=== PATIENT | female | born 1950 | race Caucasian/White ===

== ENCOUNTER 2016-11-20 20:08 | Observation (INO) | payer MEDICARE, OTHER ==
[~2016-11-20] VITALS: Ht 149.9 cm; Wt 80.0 kg
[2016-11-20 20:12] VITALS: BP 131/69; PULSE 80; RESP 26; TEMP 97.3; O2SAT 98
[2016-11-20 20:20] VITALS: BP 154/78; PULSE 80; RESP 24; O2SAT 97
[2016-11-20 20:30] VITALS: BP 154/78; PULSE 75; O2SAT 97
[2016-11-20] MEDS ORDERED: HYDROmorphone HCL PF 1 MG/ML VIAL IV PUSH ONE ×2 (20:45→21:45)
[2016-11-20] MEDS ORDERED: SODIUM CHLORIDE 0.9% FLUSH 5 ML FLUSH IVF PRN (20:45)
[2016-11-20 20:50] LABS: AUTOMATED NEUTROPHIL # 5.7 TH/MM3 (1.8-7.7); BASOPHIL % 0.3 % (0.0-2.0); EOSINOPHIL # 0.4 TH/MM3 (0-0.4); HEMATOCRIT 41.8 % (35.0-46.0); HEMO FLAGS DIFF FINAL; LYMPH % 24.2 % (9.0-44.0); LYMPHOCYTE # 2.1 TH/MM3 (1.0-4.8); MEAN CORPUSCULAR HEMOGLOBIN 28.9 PG (27.0-34.0); MEAN CORPUSCULAR HGB CONC 32.4 % (32.0-36.0); MONO % 6.9 % (0.0-8.0); NEUT % 64.6 % (16.0-70.0); PLATELET COUNT 260 TH/MM3 (150-450); RED CELL DISTRIBUTION WIDTH 13.2 % (11.6-17.2); WHITE BLOOD COUNT 8.8 TH/MM3 (4.0-11.0)
[2016-11-20 21:04] VITALS: BP 143/67; PULSE 79; RESP 20; O2SAT 98
[2016-11-20 21:04] LABS: CHLORIDE 111 MEQ/L (98-107); POTASSIUM 4.3 MEQ/L (3.5-5.1); SODIUM (NA) 144 MEQ/L (136-145)
[2016-11-20 21:08] LABS: ANION GAP 8 MEQ/L (5-15); BLOOD UREA NITROGEN 20 MG/DL (7-18); MAGNESIUM 2.3 MG/DL (1.5-2.5)
[2016-11-20 21:11] LABS: ALT (GPT) 42 U/L (10-53); AST (GOT) 25 U/L (15-37); GLOMERULAR FILTRATION RATE 45 ML/MIN (>89)
[2016-11-20 21:12] LABS: TOTAL BILIRUBIN ADULT 0.3 MG/DL (0.2-1.0)
[2016-11-20 21:14] LABS: ALKALINE PHOSPHATASE 110 U/L (45-117)
--- NOTE | 2016-11-20 21:14 | RADHPO ---
EXAM DATE/TIME: 11/20/2016 20:59 [facility] COMPARISON: No previous studies available for comparison. INDICATIONS : Chest pain. MEDICAL HISTORY : None. SURGICAL HISTORY : None. ENCOUNTER: Initial ACUITY: 2 days PAIN SCORE: 7/10 LOCATION: middle chest FINDINGS: A single view of the chest demonstrates the lungs to be symmetrically aerated without evidence of mas s, infiltrate or effusion. The cardiomediastinal contours are unremarkable. Osseous structures are intact. CONCLUSION: No evidence of acute cardiopulmonary disease. Rhys Cardona MD on November 20, 2016 at 21:12 Board Certified Radiologist. This report was verified electronically.
[2016-11-20 21:17] LABS: CREATINE KINASE 69 U/L (26-192)
[2016-11-20] MEDS ORDERED: CITRTAB7 PO (21:24)
[2016-11-20] MEDS ORDERED: CARD180C5 PO (21:24)
[2016-11-20] MEDS ORDERED: AMBI5TAB PO (21:24)
[2016-11-20] MEDS ORDERED: FLUT50SP EACH NARE (21:24)
[2016-11-20] MEDS ORDERED: MONT10TA2 PO (21:24)
[2016-11-20] MEDS ORDERED: ALBUAER3 INH (21:24)
[2016-11-20] MEDS ORDERED: CREON12 PO (21:24)
[2016-11-20] MEDS ORDERED: ADVA500A INH (21:24)
[2016-11-20] MEDS ORDERED: VITATAB11 PO (21:24)
[2016-11-20] MEDS ORDERED: ROPI1TAB PO (21:24)
[2016-11-20] MEDS ORDERED: CHOL1CAP6 (21:24)
[2016-11-20] MEDS ORDERED: FERR325T PO (21:24)
[2016-11-20] MEDS ORDERED: CELE40TA PO (21:24)
[2016-11-20] MEDS ORDERED: ALBU2TAB4 PO (21:24)
[2016-11-20] MEDS ORDERED: LEVO25TA4 PO (21:24)
[2016-11-20] MEDS ORDERED: OMEP20TA PO (21:24)
--- NOTE | 2016-11-20 21:31 | PD ---
HPI Chief Complaint: Respiratory Symptoms Time Seen by Provider: 20:26 Travel History International Travel<30 days: No Contact w/Intl Traveler<30days: No History of Present Illness HPI The patient is 58 years old. She reports coughing for about 2 days. She developed pain in the region of the right lower chest posteriorly. There is a pleuritic component. She's had no fever. She states she's never had this kind of pain. There is no radiation. No recent traumatic injury is reported. She recalls that years prior she was admitted to a hospital for CHF however states she is not familiar with the diagnosis when asked about it. PFSH Past Medical History Asthma: Yes Anxiety: Yes Depression: Yes Congestive Heart Failure: Yes COPD: Yes Hypertension: Yes Thyroid Disease: Yes Influenza Vaccination: Yes ?: Not Past Surgical History Appendectomy: Yes Cholecystectomy: Yes Endocrine Surgery: Yes (pancreas) Tonsillectomy: Yes Other Surgery: Yes (knee replacement, rt shoulder, gallblader) Social History Alcohol Use: No Tobacco Use: No Substance Use: No Allergies-Medications (Allergen,Severity, Reaction): Coded Allergies: No Known Allergies (Unverified , 11/20/16) Reported Meds & Prescriptions Reported Meds & Active Scripts Active Reported Creon (Amylase/Lipase/Protease) 12,000-38,000-60,000 Units Cap 1 Cap PO TIDPC Singulair (Montelukast Sodium) 10 Mg Tab 10 Mg PO HS Vitamin D-3 (Cholecalciferol) 1,000 Unit Cap Vitamin B Complex (B-Complex Vitamins) 1 Tab 1 Cap PO DAILY Ropinirole 1 Mg Tab 1 Mg PO DAILY Celexa (Citalopram Hydrobromide) 40 Mg Tab 40 Mg PO DAILY Fluticasone Nasal [place] 50 Mcg/Act Naspr 50 Mcg EACH NARE BID 50 mcg/spray Albuterol (Albuterol Sulfate) 2 Mg Tab 2 Mg PO TID Ambien (Zolpidem Tartrate) 5 Mg Tab 5 Mg PO HS PRN Proair Hfa 8.5 GM Inh (Albuterol Sulfate) 90 Mcg/Act Aer 2 Puff INH Q4-6H PRN 108 mcg/actuation Citracal + D3 Maximum (Calcium Citrate-Vitamin D) 315-250 Mg-Unit Tab 1 Tab PO BID Levothyroxine (Levothyroxine Sodium) 25 Mcg Tab 25 Mcg PO DAILY Omeprazole 20 Mg Tab 20 Mg PO DAILY Cardizem CD 24 HR (Diltiazem CD 24 HR) 180 Mg Caper 180 Mg PO DAILY Ferrous Sulfate 325 Mg Tab 325 Mg PO DAILY Advair Diskus Inh (Fluticasone-Salmeterol Inh) 500-50 Mcg/Blist Aer 1 Puff INH BID Rinse mouth after use. Review of Systems Except as stated in HPI: all other systems reviewed are Neg General / Constitutional: No: Fever, Chills Cardiovascular: Positive: Chest Pain or Discomfort Respiratory: No: Cough Physical Exam Narrative GENERAL: 66-year-old female mild to moderate distress secondary to pain and/or anxiety SKIN: Warm and dry. HEAD: Atraumatic. Normocephalic. EYES: Pupils equal and round. No scleral icterus. No injection or drainage. ENT: No nasal bleeding or discharge. Mucous membranes pink and moist. NECK: Trachea midline. No JVD. CARDIOVASCULAR: Regular rate and rhythm. No murmur appreciated. RESPIRATORY: No accessory muscle use. Clear to auscultation. Breath sounds equal bilaterally. GASTROINTESTINAL: Abdomen soft, non-tender, nondistended. Hepatic and splenic margins not palpable. MUSCULOSKELETAL: No obvious deformities. No clubbing. No cyanosis. No evidence DVT. NEUROLOGICAL: Awake and alert. No obvious cranial nerve deficits. Motor grossly within normal limits. Normal speech. PSYCHIATRIC: Appropriate mood and affect; insight and judgment normal. Data Data Last Documented VS Vital Signs Date Time Temp Pulse Resp B/P Pulse Ox O2 Delivery O2 Flow Rate FiO2 11/20/16 22:27 81 140/74 96 Room Air 11/20/16 21:34 16 2 11/20/16 20:12 97.3 Vital signs reviewed Orders Electrocardiogram (11/20/16 20:36) Ckmb (Isoenzyme) Profile (11/20/16 20:36) Complete Blood Count With Diff (11/20/16 20:36) Comprehensive Metabolic Panel (11/20/16 20:36) Magnesium (Mg) (11/20/16 20:36) Troponin I (11/20/16 20:36) Lipase (11/20/16 20:36) Chest, Single Ap (11/20/16 20:36) Ecg Monitoring (11/20/16 20:36) Bilateral Bp Monitoring (11/20/16 20:36) Iv Access Insert/Monitor (11/20/16 20:36) Oximetry (11/20/16 20:36) Oxygen Administration (11/20/16 20:36) Sodium Chloride 0.9% Flush (Ns Flush) (11/20/16 20:45) Ct Pulmonary Angiogram (11/20/16 20:36) Hydromorphone Pf Inj (Dilaudid Pf Inj) (11/20/16 20:45) B-Type Natriuretic Peptide (11/20/16 20:36) Hydromorphone Pf Inj (Dilaudid Pf Inj) (11/20/16 21:45) Iohexol 350 Inj (Omnipaque 350 Inj) (11/20/16 21:47) Ceftriaxone Inj (Rocephin Inj) (11/20/16 22:15) Azithromycin Inj (Zithromax Inj) (11/20/16 22:15) Blood Culture (11/20/16 22:14) Admit Order (Ed Use Only) (11/20/16 23:06) Place In Observation (11/20/16 ) Vital Signs (Adult) Q4H (11/20/16 23:06) Activity Oob With Assistance (11/20/16 23:06) Lunchroom Aide / Telemetry .CONTINUOUS (11/20/16 23:06) Diet Heart Healthy (11/21/16 Breakfast) Sodium Chloride 0.9% Flush (Ns Flush) (11/20/16 23:15) Sodium Chloride 0.9% Flush (Ns Flush) (11/21/16 09:00) Creatine Kinase (Cpk) (11/21/16 04:00) Creatine Kinase (Cpk) (11/21/16 10:00) Troponin I (11/21/16 04:00) Troponin I (11/21/16 10:00) Electrocardiogram (11/21/16 04:00) Electrocardiogram (11/21/16 10:00) Case Management Consult (11/20/16 23:06) Enoxaparin Inj (Lovenox Inj) (11/21/16 09:00) Naloxone Inj (Narcan Inj) (11/20/16 23:15) Labs Laboratory Tests Test 11/20/16 20:20 White Blood Count 8.8 TH/MM3 Red Blood Count 4.70 MIL/MM3 Hemoglobin 13.6 GM/DL Hematocrit 41.8 % Mean Corpuscular Volume 89.0 FL Mean Corpuscular Hemoglobin 28.9 PG Mean Corpuscular Hemoglobin 32.4 % Concent Red Cell Distribution Width 13.2 % Platelet Count 260 TH/MM3 Mean Platelet Volume 7.9 FL Neutrophils (%) (Auto) 64.6 % Lymphocytes (%) (Auto) 24.2 % Monocytes (%) (Auto) 6.9 % Eosinophils (%) (Auto) 4.0 % Basophils (%) (Auto) 0.3 % Neutrophils # (Auto) 5.7 TH/MM3 Lymphocytes # (Auto) 2.1 TH/MM3 Monocytes # (Auto) 0.6 TH/MM3 Eosinophils # (Auto) 0.4 TH/MM3 Basophils # (Auto) 0.0 TH/MM3 CBC Comment DIFF FINAL Differential Comment Sodium Level 144 MEQ/L Potassium Level 4.3 MEQ/L Chloride Level 111 MEQ/L Carbon Dioxide Level 25.0 MEQ/L Anion Gap 8 MEQ/L Blood Urea Nitrogen 20 MG/DL Creatinine 1.20 MG/DL Estimat Glomerular Filtration 45 ML/MIN Rate Random Glucose 135 MG/DL Calcium Level 8.1 MG/DL Magnesium Level 2.3 MG/DL Total Bilirubin 0.3 MG/DL Aspartate Amino Transf 25 U/L (AST/SGOT) Alanine Aminotransferase 42 U/L (ALT/SGPT) Alkaline Phosphatase 110 U/L Total Creatine Kinase 69 U/L Troponin I LESS THAN 0.02 NG/ML B-Type Natriuretic Peptide 31 PG/ML Total Protein 7.1 GM/DL Albumin 3.8 GM/DL Lipase 227 U/L [facility] Medical Decision Making Medical Screen Exam Complete: Yes Emergency Medical Condition: Yes Differential Diagnosis NSTEMI, unstable angina, coronary vasospasm, PE, PTX, aortic dissection, pericarditis, myocarditis, endocarditis, PNA, esophageal disease, aneurysm, musculoskeletal etiologies, anxiety, cocaine/sympathomimetic abuse Narrative Course EKG shows a sinus rhythm with a rate of 77 normal axis intervals; no ischemic injury pattern present Last 24 hours Impressions Chest X-Ray 11/20/162035 Signed Impressions: Service Date/Time: November 20:59 - CONCLUSION: No evidence of acute cardiopulmonary disease. Rhys Cardona MD CBC & BMP Diagram 11/20/16 20:20 LFTs normal Lipase normal BNP 31 Tn < 0.02 Last 24 hours Impressions Chest X-Ray 11/20/162035 Signed Impressions: Service Date/Time: November 20:59 - CONCLUSION: No evidence of acute cardiopulmonary disease. Rhys Cardona MD CT Angiography 11/20/162035 Signed Impressions: Service Date/Time: November 21:41 - CONCLUSION: 1. No pulmonary embolus. 2. Focal coronary artery calcification left anterior descending. 3. Patchy infiltrates of both lungs that are most likely infectious or inflammatory. Localized area of slight subcentimeter nodularity right upper lobe. Followup noncontrast chest CT recommended in no more than 6 months. The 1 cm rim calcified splenic artery aneurysm should be rechecked at that same time. Rhys Cardona MD Etiology of pain is unclear. On exam the skin appears normal and there is no significant TTP in R posterior chest wall. CT shows possible bilateral pneumonia v inflammatory change. She does report a cough for past two days. Rocephin and azithromycin started. Blood cultures drawn. Calcification of LAD on CT of concern. Pt required hydromorphone 0.5mg IV x 2 during ER stay. d/w Dr Freitas. Diagnosis Primary Impression: PNA (pneumonia) Qualified Code: J18.9 - Pneumonia of both lungs due to infectious organism, unspecified part of lung Additional Impression: Chest pain Qualified Code: R07.9 - Chest pain, unspecified type Admitting Information Admitting Physician Requests: Admit Juanjose Brown MD Nov 20, 2016 21:31
[2016-11-20 21:34] VITALS: BP_SYST 114; BP_SYST 121; BP_DIAS 65; BP_DIAS 69; PULSE 78; RESP 16; O2SAT 98
[2016-11-20] MEDS ORDERED: IOHEXOL 350 MG/ML 10 ML VIAL (for RAD DIAG) IV ONE (21:47)
--- NOTE | 2016-11-20 22:03 | RADHPO ---
EXAM DATE/TIME: 11/20/2016 21:41 [facility] COMPARISON: CHEST SINGLE AP, November 20, 2016, 20:59. INDICATIONS : Shortness of breath. Evaluate for embolism. IV CONTRAST: 75 cc Omnipaque 350 (iohexol) IV RADIATION DOSE: 14.05 CTDIvol (mGy) MEDICAL HISTORY : Congestive hearrt failure. Hypertension. Chronic obstructive pulmonary disease. SURGICAL HISTORY : Cholecystectomy. Appendectomy.Pancreas. Right shoulder. ENCOUNTER: Initial ACUITY: 1 day PAIN SCALE: 9/10 LOCATION: Right chest TECHNIQUE: Volumetric scanning of the chest was performed using a pulmonary embolism protocol MIP images were re constructed. Using automated exposure control and adjustment of the mA and/or kV according to patien t size, radiation dose was kept as low as reasonably achievable to obtain optimal diagnostic quality images. FINDINGS: There is no pulmonary embolus. Normal heart size. There is coronary artery calcification, most conspicuous proximally and the left a nterior descending. Mild, patchy air space consolidation and groundglass infiltrates seen diffusely of both lungs that ar e presumably infectious or inflammatory. There is an approximately 5 mm slightly nodular area of the right upper lobe. No dense infiltrate. No pleural effusion or pneumothorax. No mediastinal, hilar or axillary lymphadenopathy demonstrated. There appears to been a previous joann jurgen bypass. 10 mm rim calcified splenic artery aneurysm incidentally noted. CONCLUSION: 1. No pulmonary embolus. 2. Focal coronary artery calcification left anterior descending. 3. Patchy infiltrates of both lungs that are most likely infectious or inflammatory. Localized area o f slight subcentimeter nodularity right upper lobe. Followup noncontrast chest CT recommended in no m ore than 6 months. The 1 cm rim calcified splenic artery aneurysm should be rechecked at that same ti la. Rhys Cardona MD on November 20, 2016 at 21:58 Board Certified Radiologist. This report was verified electronically.
[2016-11-20] MEDS ORDERED: cefTRIAXone INJ 1,000 MG in SODIUM CHLORIDE 0.9% INJ 100 ML IV ONE (22:15)
[2016-11-20] MEDS ORDERED: AZITHROMYCIN INJ 500 MG in SODIUM CHLOR 0.9% 250 ML INJ 250 ML IV ONE (22:15)
[2016-11-20 22:27] VITALS: BP 140/74; PULSE 81; O2SAT 96
[2016-11-20] MEDS ORDERED: NALOXONE HCL 0.4 MG/ML AMP IV PRN (23:15)
[2016-11-20] MEDS ORDERED: SODIUM CHLORIDE 0.9% FLUSH 5 ML FLUSH FLUSH PRN (23:15)
[2016-11-21] VITALS (11 sets, daily range): BP systolic 117–169; BP diastolic 67–95; PULSE 71–81; RESP 18–21; TEMP 96.7–98.6; O2SAT 96–99
[2016-11-21] MEDS: HYDROmorphone HCL PF 1 MG/ML VIAL IV PUSH PRN ×4 (01:19→22:33)
[2016-11-21 04:43] LABS: CREATINE KINASE 58 U/L (26-192)
[2016-11-21] MEDS ORDERED: LEVOFLOXACIN 750 MG PREMIX INJ 150 ML IV SCH ×2 (09:00)
[2016-11-21] MEDS: ENOXAPARIN SODIUM 40 MG/0.4 ML SYRINGE SQ SCH (09:47)
[2016-11-21] MEDS: SODIUM CHLORIDE 0.9% FLUSH 5 ML FLUSH FLUSH SCH ×2 (09:47→21:34)
[2016-11-21 10:39] LABS: CREATINE KINASE 53 U/L (26-192)
--- NOTE | 2016-11-21 15:42 | EKG ---
Date Performed: 11/21/2016 Time Performed: 03:35:38 PTAGE: 66 years EKG: Sinus rhythm . rSr'(V1) - probable normal variant Septal T wave changes are nonspecific Borderline ECG PREVIOUS TRACING : 11/20/2016 21.18 Compared to prior tracing no significant change DOCTOR: Karen Albarado Interpretating Date/Time 11/21/2016 15:40:52
--- NOTE | 2016-11-21 15:42 | EKG ---
Date Performed: 11/20/2016 Time Performed: 21:18:54 PTAGE: 66 years EKG: Sinus rhythm . rSr'(V1) - probable normal variant Septal and lateral ST-T changes are nonspecific Borderline ECG NO PREVIOUS TRACING DOCTOR: Karen Albarado Interpretating Date/Time 11/21/2016 15:40:20
[2016-11-21] MEDS ORDERED: RESP: ALBUTEROL 2.5 MG/IPRATROPIUM 0.5 MG NEB (PRN) NEB (16:00)
--- NOTE | 2016-11-21 16:10 | HHI.HP ---
[facility]Staff Ad[facility] Diagnosis Bilat PNA, CP Diagnoses: Chief Complaint: Right back pain worsened with respiration Travel History International Travel<30 Days: No Contact w/Intl Traveler <30 Da: No History of Present Illness 66 years old female presented to the ED complaining of severe stabbing sharp right sided back pain worsened with breathing, started about 2-3 days ago, patient stated she had flulike syndrome 2 weeks ago. No fever or chills no anterior chest pain, no nausea or vomiting or diarrhea or constipation, no abdominal pain, no dizziness or lightheaded. In ED CT scan has been done to rule out EE which was negative, however it shows bilateral infiltrate representing inflammation or infection, right upper lung nodularity subcentimeter need to be followed up in 6 month. Patient started on O2 and DuoNeb her pain was extremely severe she needed Dilaudid to help taking her breath Review of Systems All 10 systems reviewed and was positive for what is mentioned in history of present illness otherwise negative Past Family Social History Past Medical History Asthma Anxiety Depression CHF COPD Pancreatic deficiency Hypertension Hypothyroidism Past Surgical History Appendectomy Cholecystectomy Pancreatic surgery Tonsillectomy Allergies: Coded Allergies: No Known Allergies (Unverified , 11/20/16) Family History Her rather had heart surgery in age of 72 Social History Denied tobacco alcohol or illicit drug abuse However 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 Physical Exam Vital Signs Vital Signs Date Time Temp Pulse Resp B/P Pulse Ox O2 Delivery O2 Flow Rate FiO2 11/21/16 12:11 96.7 81 18 169/87 98 11/21/16 11:19 18 11/21/16 08:23 96.9 79 21 169/95 98 11/21/16 07:18 97.7 76 18 140/82 96 Room Air 11/21/16 07:18 Room Air 11/21/16 07:05 96 Room Air 11/21/16 05:41 79 169/87 97 11/21/16 03:23 76 Room Air 11/21/16 03:21 97.9 76 18 141/74 97 Room Air 11/21/16 01:51 77 125/80 99 Nasal Cannula 2 11/20/16 22:27 81 140/74 96 Room Air 11/20/16 21:34 78 16 121/69 98 Nasal Cannula 2 114/65 11/20/16 21:04 79 20 143/67 98 Nasal Cannula 2 11/20/16 21:02 98 Nasal Cannula 2 11/20/16 20:39 Room Air 11/20/16 20:30 75 154/78 97 11/20/16 20:20 80 24 154/78 97 Room Air 11/20/16 20:12 97.3 80 26 131/69 98 Physical Exam GENERAL: This is a well-nourished, well-developed patient, in no apparent distress. SKIN: No rashes, warm and dry HEAD: Atraumatic. Normocephalic. EYES: Pupils equal round and reactive. Extraocular motions intact. No scleral icterus. ENT: Nose without bleeding, or drainage, Airway patent. NECK: Trachea midline. Supple CARDIOVASCULAR: Regular rate and rhythm without murmurs, gallops, or rubs. RESPIRATORY: Fair air entry with slight diminished BS bilaterally no wheezing GASTROINTESTINAL: Abdomen soft, non-tender, nondistended. Positive bowel sounds MUSCULOSKELETAL: Extremities without clubbing, cyanosis, or edema. Pedal pulses appreciated NEUROLOGICAL: Awake and alert. Moves all extremity. Normal speech.no focal neurological deficit Laboratory Laboratory Tests Test 11/20/16 11/21/16 11/21/16 20:20 03:40 09:50 White Blood Count 8.8 Red Blood Count 4.70 Hemoglobin 13.6 Hematocrit 41.8 Mean Corpuscular Volume 89.0 Mean Corpuscular Hemoglobin 28.9 Mean Corpuscular Hemoglobin 32.4 Concent Red Cell Distribution Width 13.2 Platelet Count 260 Mean Platelet Volume 7.9 Neutrophils (%) (Auto) 64.6 Lymphocytes (%) (Auto) 24.2 Monocytes (%) (Auto) 6.9 Eosinophils (%) (Auto) 4.0 Basophils (%) (Auto) 0.3 Neutrophils # (Auto) 5.7 Lymphocytes # (Auto) 2.1 Monocytes # (Auto) 0.6 Eosinophils # (Auto) 0.4 Basophils # (Auto) 0.0 CBC Comment DIFF FINAL Differential Comment Sodium Level 144 Potassium Level 4.3 Chloride Level 111 Carbon Dioxide Level 25.0 Anion Gap 8 Blood Urea Nitrogen 20 Creatinine 1.20 Estimat Glomerular Filtration 45 Rate Random Glucose 135 Calcium Level 8.1 Magnesium Level 2.3 Total Bilirubin 0.3 Aspartate Amino Transf 25 (AST/SGOT) Alanine Aminotransferase 42 (ALT/SGPT) Alkaline Phosphatase 110 Total Creatine Kinase 69 58 53 Troponin I LESS THAN 0.02 LESS THAN 0.02 LESS THAN 0.02 B-Type Natriuretic Peptide 31 Total Protein 7.1 Albumin 3.8 Lipase 227 Date/Time Procedure Status Source Growth 11/20/16 22:20 Aerobic Blood Culture - Preliminary Resulted Blood Peripheral NO GROWTH IN 1 DAY 11/20/16 22:20 Anaerobic Blood Culture - Preliminary Resulted Blood Peripheral NO GROWTH IN 1 DAY Result Diagram: 11/20/16201911/20/162019 Imaging Last Impressions Chest X-Ray 11/20/162035 Signed Impressions: Service Date/Time: November 20:59 - CONCLUSION: No evidence of acute cardiopulmonary disease. Rhys Cardona MD CT Angiography 11/20/162035 Signed Impressions: Service Date/Time: November 21:41 - CONCLUSION: 1. No pulmonary embolus. 2. Focal coronary artery calcification left anterior descending. 3. Patchy infiltrates of both lungs that are most likely infectious or inflammatory. Localized area of slight subcentimeter nodularity right upper lobe. Followup noncontrast chest CT recommended in no more than 6 months. The 1 cm rim calcified splenic artery aneurysm should be rechecked at that same time. Rhys Cardona MD Assessment and Plan Assessment and Plan 58 years old female came with Severe Right sided pleurisy pain with bilateral lung infiltrate/groundglass suspect bilateral atypical pneumonia: O2, DuoNeb, continue her Advair Started on Rocephin and Zithromax in ED switched to Levaquin iv, will switch to by mouth Check sputum is if available, check urine antigen for Legionella and pneumococcus Monitor for fever or leukocytosis, check CBC in a.m. Calcified LAD on CT chest: 3 sets of cardiac enzyme negative D/W cardiology Dr. Jerez, no need for in-house further workup Right subcentimeter upper lung nodularity: CT chest and less than 6 months YAA versus CKD, we don't have a baseline, creatinine 1.2 DVT prophylaxis with Lovenox Nemou,Saldana MD Nov 21, 2016 16:10
[2016-11-21] MEDS: RESP: ALBUTEROL 2.5 MG/IPRATROPIUM 0.5 MG NEB (SCH) NEB ×2 (16:34→19:55)
[2016-11-21] MEDS: LIPASE/PROTEASE/AMYLASE (12,000/38,000/60,000) CAP PO SCH (18:17)
[2016-11-21] MEDS ORDERED: MONTELUKAST SODIUM 10 MG TAB PO SCH (21:00)
[2016-11-21] MEDS: BUDESONIDE-FORMOTEROL 160/4.5 MCG INHALER INH SCH (21:34)
--- NOTE | 2016-11-21 21:45 | EKG ---
Date Performed: 11/21/2016 Time Performed: 09:56:28 PTAGE: 66 years EKG: Sinus rhythm . rSr'(V1) - probable normal variant Septal T wave changes are nonspecific Borderline ECG NO SIGNIFIC ANT CHANGE FROM PRIOR ELECTROCARDIOGRAM. PREVIOUS TRACING : 11/21/2016 03.35 DOCTOR: Allan Jerez Interpretating Date/Time 11/21/2016 21:43:19
[2016-11-22 00:25] VITALS: BP 117/71; PULSE 91; RESP 18; TEMP 97.2; O2SAT 96
[2016-11-22] MEDS: HYDROmorphone HCL PF 1 MG/ML VIAL IV PUSH PRN ×2 (02:58→08:49)
[2016-11-22 04:25] VITALS: BP 115/79; PULSE 78; RESP 20; TEMP 98.6; O2SAT 96
[2016-11-22] MEDS ORDERED: LEVOTHYROXINE SODIUM 25 MCG TAB PO SCH (06:00)
[2016-11-22 08:00] VITALS: BP 125/66; PULSE 113; PULSE 93; RESP 20; TEMP 97.7; O2SAT 97
[2016-11-22] MEDS: RESP: ALBUTEROL 2.5 MG/IPRATROPIUM 0.5 MG NEB (SCH) NEB ×3 (08:02→15:14)
[2016-11-22] MEDS: SODIUM CHLORIDE 0.9% FLUSH 5 ML FLUSH FLUSH SCH (08:49)
[2016-11-22] MEDS: BUDESONIDE-FORMOTEROL 160/4.5 MCG INHALER INH SCH (08:53)
[2016-11-22] MEDS: LIPASE/PROTEASE/AMYLASE (12,000/38,000/60,000) CAP PO SCH ×2 (08:57→13:33)
[2016-11-22] MEDS: ENOXAPARIN SODIUM 40 MG/0.4 ML SYRINGE SQ SCH (08:57)
[2016-11-22] MEDS ORDERED: FERROUS SULFATE 325 MG (65 MG ELEMENTAL IRON) TAB PO SCH (09:00)
[2016-11-22] MEDS ORDERED: CITALOPRAM HYDROBROMIDE 40 MG TAB PO SCH (09:00)
[2016-11-22] MEDS ORDERED: PANTOPRAZOLE SOD 20 MG DELAYED RELEASE TAB PO SCH (09:00)
[2016-11-22] MEDS ORDERED: DILTIAZEM-CD 180 MG CAP ER PO SCH (09:00)
[2016-11-22 12:00] VITALS: BP 119/67; PULSE 85; RESP 21; TEMP 97.6; O2SAT 97
--- NOTE | 2016-11-22 12:08 | HHI.PR ---
Objective Vitals Vital Signs Date Time Temp Pulse Resp B/P Pulse Ox O2 Delivery O2 Flow Rate FiO2 11/22/16 08:00 97.7 113 20 125/66 97 11/22/16 04:25 98.6 78 20 115/79 96 11/22/16 00:25 97.2 91 18 117/71 96 11/21/16 20:25 98.6 72 18 117/67 99 11/21/16 20:00 73 11/21/16 19:55 98 21 11/21/16 16:10 97.3 71 18 130/78 99 11/21/16 12:11 96.7 81 18 169/87 98 I/O 11/21/16 11/21/16 11/21/16 11/22/16 11/22/16 11/22/16 07:00 15:00 23:00 07:00 15:00 23:00 Intake Total 350 ml 150 ml Balance 350 ml 150 ml Intake IV Total 350 ml 150 ml # Voids 3 2 6 3 # Bowel Movements 1 1 Result Diagram: 11/20/16201911/20/162019 Shana Moctezuma MD Nov 22, 2016 12:08
[2016-11-22 12:26] LABS: AUTOMATED NEUTROPHIL # 5.3 TH/MM3 (1.8-7.7); BASOPHIL # 0.2 TH/MM3 (0-0.2); BASOPHIL % 2.3 % (0.0-2.0); EOSINOPHIL # 0.1 TH/MM3 (0-0.4); EOSINOPHIL % 0.8 % (0.0-4.0); HEMATOCRIT 35.3 % (35.0-46.0); LYMPH % 14.6 % (9.0-44.0); LYMPHOCYTE # 1.1 TH/MM3 (1.0-4.8); MEAN CELL VOLUME 88.5 FL (80.0-100.0); MEAN CORPUSCULAR HGB CONC 32.8 % (32.0-36.0); MONO % 6.7 % (0.0-8.0); NEUT % 75.6 % (16.0-70.0); PLATELET COUNT 222 TH/MM3 (150-450); RED BLOOD COUNT 3.99 MIL/MM3 (4.00-5.30); RED CELL DISTRIBUTION WIDTH 12.5 % (11.6-17.2); WHITE BLOOD COUNT 7.2 TH/MM3 (4.0-11.0)
[2016-11-22] MEDS ORDERED: KETOROLAC TROMETHAMINE 30 MG/ML (IVP) VIAL IV PUSH ONE (12:30)
[2016-11-22 12:31] LABS: HEMO FLAGS DIFF FINAL
[2016-11-22 12:33] LABS: POTASSIUM 3.9 MEQ/L (3.5-5.1)
[2016-11-22 12:36] LABS: BICARBONATE 25.8 MEQ/L (21.0-32.0)
[2016-11-22] MEDS ORDERED: KETO10 PO ×2 (14:37→14:54)
--- NOTE | 2016-11-22 14:38 | HHI.DCPOC ---
Discharge Care Plan Diagnosis: (1) Chest pain (2) PNA (pneumonia) (3) Pleurisy Goals to Promote Your Health * To prevent worsening of your condition and complications * To maintain your health at the optimal level Directions to Meet Your Goals Take your medications as prescribed Follow your dietary instruction Follow activity as directed Keep your appointments as scheduled Take your immunizations and boosters as scheduled If your symptoms worsen call your PCP, if no PCP go to Urgent Care Center or Emergency Room Smoking is Dangerous to Your Health. Avoid second hand smoke Call the 24-hour hour crisis hotline for domestic abuse at [facility] Nov 22, 2016 14:38
[2016-11-22] MEDS ORDERED: LEVA750T PO (14:40)
[2016-11-22] MEDS ORDERED: NORC5TAB PO (14:54)
--- NOTE | 2016-11-22 19:35 | HHI.DS ---
Discharge Summary Admission Date Nov 20, 2016 at 23:08 Discharge Date: Nov 22, 2016 Admitting Diagnosis Bilat PNA, CP (1) Pleurisy ICD Code: R09.1 (2) Chest pain ICD Code: R07.9 (3) PNA (pneumonia) ICD Code: J18.9 Procedures Non- Brief History - From Admission 66 years old female presented to the ED complaining of severe stabbing sharp right sided back pain worsened with breathing, started about 2-3 days ago, patient stated she had flulike syndrome 2 weeks ago. No fever or chills no anterior chest pain, no nausea or vomiting or diarrhea or constipation, no abdominal pain, no dizziness or lightheaded. In ED CT scan has been done to rule out EE which was negative, however it shows bilateral infiltrate representing inflammation or infection, right upper lung nodularity subcentimeter need to be followed up in 6 month. Patient started on O2 and DuoNeb her pain was extremely severe she needed Dilaudid to help taking her breath CBC/BMP: 11/22/16 1219 11/22/16 1219 Significant Findings Laboratory Tests Test 11/20/16 11/21/16 11/21/16 11/22/16 20:20 03:40 09:50 12:19 Chloride Level 111 MEQ/L 108 MEQ/L (98-107) (98-107) Blood Urea Nitrogen 20 MG/DL (7-18) Creatinine 1.20 MG/DL (0.50-1.00) Estimat Glomerular Filtration 45 ML/MIN (>89) 60 ML/MIN (>89) Rate Random Glucose 135 MG/DL 107 MG/DL (74-106) (74-106) Calcium Level 8.1 MG/DL 7.8 MG/DL (8.5-10.1) (8.5-10.1) Troponin I LESS THAN 0.02 LESS THAN 0.02 LESS THAN 0.02 NG/ML NG/ML NG/ML (0.02-0.05) (0.02-0.05) (0.02-0.05) Red Blood Count 3.99 MIL/MM3 (4.00-5.30) Neutrophils (%) (Auto) 75.6 % (16.0-70.0) Basophils (%) (Auto) 2.3 % (0.0-2.0) Hospital Course 58 years old female came with Severe Right sided pleurisy pain with bilateral lung infiltrate/groundglass suspect bilateral atypical pneumonia: O2, DuoNeb, continue her Advair Started on Rocephin and Zithromax in ED switched to Levaquin iv, will switch to by mouth sputum is if available, negative urine antigen for Legionella and pneumococcus Monitor for fever or leukocytosis, reviewed CBC today Symptoms improved significantly with dose of Toradol, will give 3 days at discharge with [place], patient improved significantly today will discharge home to follow up as an outpatient To be noted patient had Calcified LAD on CT chest: 3 sets of cardiac enzyme negative D/W cardiology Dr. Jerez, no need for in-house further workup Right subcentimeter upper lung nodularity:CT chest and less than 6 months YAA versus CKD, we don't have a baseline, creatinine 1.2, resolv DVT prophylaxis with Lovenox , so we proceeded with discharge [id number] encounter performed with the patient on discharge day , I Had a lengthy discussion and work with the nurse of the PA today to monitor symptoms of the patient which improved, physical exam, summary of hospitalization course and postdischarge plan has been placed D/W the patient. D/W nurse D/W clinical case manager. And the PA Discharge medications reviewed and printed and signed, post discharge follow up visit with PCP and other specialist as well as Brief hospital course and discharge summary has been placed. Pt Condition on Discharge: Fair Discharge Disposition: Discharge Home Discharge Time: > 30 minutes Discharge Instructions DIET: Follow Instructions for: Heart Healthy Diet Activities you can perform: Weight Bearing as [place] Follow up Referrals: PCP Follow-up - 1 Week New Orders: CT THORAX W CONTRAST (CHEST) - 6 Months New Medications: Hydrocodone-Acetaminophen ([place]) 5-325 mg Tab 1 TAB PO Q4H PRN PAIN #10 Ref 0 TAB Ketorolac (Ketorolac) 10 Mg Tab 10 MG PO Q6HR PRN PAIN Days 3 Ref 0 TAB Levofloxacin (Levaquin) 750 Mg Tab 750 MG PO Q48H Infection #5 Ref 0 TAB Continued Medications: Albuterol (Albuterol) 2 Mg Tab 2 MG PO TID Asthma Management #90 Ref 0 TAB Albuterol 8.5 GM Inh (Proair Hfa 8.5 GM Inh) 90 Mcg/Act Aer 2 PUFF INH Q4-6H 108 mcg/actuation PRN SHORTNESS OF BREATH #1 Ref 0 INHALER B-Complex Vitamins (Vitamin B Complex) 1 Tab 1 CAP PO DAILY Calcium Citrate-Vitamin D (Citracal + D3 Maximum) 315-250 Mg-Unit Tab 1 TAB PO BID Calcium Supplement #100 Ref 0 TAB Cholecalciferol (Vitamin D-3) 1,000 Unit Cap Citalopram (Celexa) 40 Mg Tab 40 MG PO DAILY Control Depression #30 Ref 0 TAB Diltiazem CD 24 HR (Cardizem CD 24 HR) 180 Mg Caper 180 MG PO DAILY #30 Ref 0 CAP Ferrous Sulfate (Ferrous Sulfate) 325 Mg Tab 325 MG PO DAILY Nutritional Supplement #30 Ref 0 TAB Fluticasone Nasal [place] (Fluticasone Nasal [place]) 50 Mcg/Act Naspr 50 MCG EACH NARE BID 50 mcg/spray Allergy Management #1 Ref 0 BOTTLE Fluticasone-Salmeterol Inh (Advair Diskus Inh) 500-50 Mcg/Blist Aer 1 PUFF INH BID Rinse mouth after use. #1 Ref 0 INHALER Levothyroxine (Levothyroxine) 25 Mcg Tab 25 MCG PO DAILY Thyroid #30 Ref 0 TAB Montelukast (Singulair) 10 Mg Tab 10 MG PO HS #30 Ref 0 TAB Omeprazole (Omeprazole) 20 Mg Tab 20 MG PO DAILY #30 Ref 0 TAB Pancrelipase (Creon) 12,000-38,000-60,000 Units Cap 1 CAP PO TIDPC Digestive Aid #90 Ref 0 CAP Ropinirole (Ropinirole) 1 Mg Tab 1 MG PO DAILY #1 Ref 0 TAB Zolpidem (Ambien) 5 Mg Tab 5 MG PO HS PRN INSOMNIA Ref 0 TAB Shana Moctezuma MD Nov 22, 2016 19:35
== END 2016-11-22 16:24 | disposition home or self-care (01) ==
LOC: PHED 20:08 → PHEDA 23:08 → INTOOBSV 23:08 → PHEDH 11-21 03:08 → PH3A 11-21 08:14
PROVIDERS: ADMIT Hospitalist; ATTEND Hospitalist
DX: J18.9 Pneumonia, unspecified organism (principal); R07.9 Chest pain, unspecified; I50.9 Heart failure, unspecified; J44.0 Chronic obstructive pulmonary disease with (acute) lower respiratory infection; I10 Essential (primary) hypertension; Z79.899 Other long term (current) drug therapy; I25.10 Atherosclerotic heart disease of native coronary artery without angina pectoris; I72.8 Aneurysm of other specified arteries; M54.9 Dorsalgia, unspecified; E03.9 Hypothyroidism, unspecified; R09.1 Pleurisy; I25.84 Coronary atherosclerosis due to calcified coronary lesion
CPT/HCPCS: 71010; 71275; 80048; 80053; 82550; 83690; 83735; 83880; 84484; 85025; 87040; 87449; 93005; 94640; 94664; 96365; 96368; 96375; 96376; 99285; G0378; J0456; J0696; J1170; J1650; J1885; J1956; J7050; Q9967

== ENCOUNTER 2016-11-28 08:06 | Emergency (ER) | payer MEDICARE ==
[~2016-11-28] VITALS: Ht 149.9 cm; Wt 75.0 kg
[~2016-11-28 08:06] MED LIST: ADVA500A INH; ALBU2TAB4 PO; ALBUAER3 INH; AMBI5TAB PO; CARD180C5 PO; CELE40TA PO; CHOL1CAP6; CITRTAB7 PO; CREON12 PO; FERR325T PO; FLUT50SP EACH NARE; KETO10 PO; LEVA750T PO; LEVO25TA4 PO; MONT10TA2 PO; NORC5TAB PO; OMEP20TA PO; ROPI1TAB PO; VITATAB11 PO
[2016-11-28 08:16] VITALS: BP 170/76; PULSE 98; RESP 28; TEMP 98.9; O2SAT 98
[2016-11-28] MEDS ORDERED: ONDANSETRON HCL 4 MG/2 ML VIAL IVP ONE (08:30)
[2016-11-28] MEDS ORDERED: SODIUM CHLORIDE 0.9% FLUSH 10 ML FLUSH IVF PRN (08:30)
[2016-11-28] MEDS ORDERED: KETOROLAC TROMETHAMINE 30 MG/ML (IVP) VIAL IV PUSH ONE (08:30)
[2016-11-28] MEDS ORDERED: MORPHINE SULFATE 4 MG/ML INJ IV PUSH ONE (08:30)
[2016-11-28] MEDS ORDERED: methylPREDNISolone SOD SUCC 125 MG/2 ML VIAL IVP ONE (08:30)
[2016-11-28 08:33] VITALS: BP 170/70; PULSE 94; RESP 20; TEMP 98.9; O2SAT 100
[2016-11-28 08:34] VITALS: O2SAT 100
--- NOTE | 2016-11-28 08:38 | PD ---
HPI Chief Complaint: Respiratory Symptoms Time Seen by Provider: 08:15 Travel History International Travel<30 days: No Contact w/Intl Traveler<30days: No Traveled to known affect area: No History of Present Illness HPI The patient was seen and examined in the presence of the nurse. This patient complains of back pain primarily. She also complains of shortness of breath. She's had back pain for the last 2 weeks on a daily basis. She was hospitalized for this 6 days ago and saw her primary physician for this 2 days ago. She says that he did not know what the cause was. She has no injury. When she moves her right shoulder pain is worse. It is located on the right side underneath her shoulder blade. Well-nourished takes a deep breath its worse. When she coughs it's worse. She reports a history of COPD it is never smoked in her life. She says that she has asthma. She has a nebulizer at home but she didn't use it today. She has a chronic dry cough. No chest pain. Symptoms severity is severe. No alleviating factors. Duration 2 weeks PFSH Past Medical History Asthma: Yes Anxiety: Yes Depression: Yes Congestive Heart Failure: Yes COPD: Yes Diminished Hearing: No Hypertension: Yes Respiratory: Yes Thyroid Disease: Yes Tetanus Vaccination: < 5 Years Influenza Vaccination: Yes ?: Not Past Surgical History Appendectomy: Yes Cholecystectomy: Yes Endocrine Surgery: Yes (pancreas) Tonsillectomy: Yes Other Surgery: Yes (knee replacement, rt shoulder, gallblader) Social History Alcohol Use: No Tobacco Use: No Substance Use: No Allergies-Medications (Allergen,Severity, Reaction): Coded Allergies: No Known Allergies (Unverified , 11/20/16) Reported Meds & Prescriptions Reported Meds & Active Scripts [place] (Hydrocodone-Acetaminophen) 5-325 mg Tab 1 Tab PO Q4H PRN Ketorolac (Ketorolac Tromethamine) 10 Mg Tab 10 Mg PO Q6HR PRN 3 Days Levaquin (Levofloxacin) 750 Mg Tab 750 Mg PO Q48H Reported Creon (Amylase/Lipase/Protease) 12,000-38,000-60,000 Units Cap 1 Cap PO TIDPC Singulair (Montelukast Sodium) 10 Mg Tab 10 Mg PO HS Vitamin D-3 (Cholecalciferol) 1,000 Unit Cap Vitamin B Complex (B-Complex Vitamins) 1 Tab 1 Cap PO DAILY Ropinirole 1 Mg Tab 1 Mg PO DAILY Celexa (Citalopram Hydrobromide) 40 Mg Tab 40 Mg PO DAILY Fluticasone Nasal [place] 50 Mcg/Act Naspr 50 Mcg EACH NARE BID 50 mcg/spray Albuterol (Albuterol Sulfate) 2 Mg Tab 2 Mg PO TID Ambien (Zolpidem Tartrate) 5 Mg Tab 5 Mg PO HS PRN Proair Hfa 8.5 GM Inh (Albuterol Sulfate) 90 Mcg/Act Aer 2 Puff INH Q4-6H PRN 108 mcg/actuation Citracal + D3 Maximum (Calcium Citrate-Vitamin D) 315-250 Mg-Unit Tab 1 Tab PO BID Levothyroxine (Levothyroxine Sodium) 25 Mcg Tab 25 Mcg PO DAILY Omeprazole 20 Mg Tab 20 Mg PO DAILY Cardizem CD 24 HR (Diltiazem CD 24 HR) 180 Mg Caper 180 Mg PO DAILY Ferrous Sulfate 325 Mg Tab 325 Mg PO DAILY Advair Diskus Inh (Fluticasone-Salmeterol Inh) 500-50 Mcg/Blist Aer 1 Puff INH BID Rinse mouth after use. Review of Systems General / Constitutional: No: Fever Eyes: No: Visual changes HENT: No: Headaches Cardiovascular: No: Chest Pain or Discomfort Respiratory: Positive: Cough, Shortness of Breath Gastrointestinal: No: Abdominal Pain Genitourinary: No: Dysuria Musculoskeletal: Positive: Pain Skin: No Rash Neurologic: No: Weakness Psychiatric: Positive: Anxiety, No: Depression Endocrine: No: Polydipsia Hematologic/Lymphatic: No: Easy Bruising Physical Exam Narrative GENERAL: Well-nourished, well-developed patient with right sided back pain and anxiety and dyspnea SKIN: Warm and dry. HEAD: Atraumatic. Normocephalic. EYES: Pupils equal and round. No scleral icterus. No injection or drainage. ENT: No nasal bleeding or discharge. Mucous membranes pink and moist. NECK: Trachea midline. No JVD. CARDIOVASCULAR: Regular rate and rhythm. No murmur appreciated. RESPIRATORY: No accessory muscle use. Diminished breath sounds throughout but she takes short panting little breaths because of her back pain. I don't hear actual wheezing. GASTROINTESTINAL: Abdomen soft, non-tender, nondistended. Hepatic and splenic margins not palpable. MUSCULOSKELETAL: No obvious deformities. No clubbing. No cyanosis. No edema. She has readily reproducible tenderness of the right mid back under the scapula. Movement of her right shoulder reproduces the pain as well. No midline tenderness. No visible spasm or atrophy or asymmetry or bruising. NEUROLOGICAL: Awake and alert. No obvious cranial nerve deficits. Motor grossly within normal limits. Normal speech. PSYCHIATRIC: Very anxious mood and affect; insight and judgment normal. Data Data Last Documented VS Vital Signs Date Time Temp Pulse Resp B/P Pulse Ox O2 Delivery O2 Flow Rate FiO2 11/28/16 09:44 Nasal Cannula 2.00 11/28/16 09:44 100 16 170/74 100 11/28/16 08:33 98.9 Orders Complete Blood Count With Diff (11/28/16 08:26) Basic Metabolic Panel (Bmp) (11/28/16 08:26) Iv Access Insert/Monitor (11/28/16 08:26) Ecg Monitoring (11/28/16 08:26) Oximetry (11/28/16 08:26) Oxygen Administration (11/28/16 08:26) Chest, Single Ap (11/28/16 08:26) Sodium Chloride 0.9% Flush (Ns Flush) (11/28/16 08:30) Methylprednisolone So Succ Inj (Solumedr (11/28/16 08:30) Albuterol Neb (Albuterol Neb) (11/28/16 08:30) Ondansetron Inj (Zofran Inj) (11/28/16 08:30) Morphine Inj (Morphine Inj) (11/28/16 08:30) Ketorolac Inj (Toradol Inj) (11/28/16 08:30) Hydromorphone Pf Inj (Dilaudid Pf Inj) (11/28/16 09:45) Labs Laboratory Tests Test 11/28/16 09:00 White Blood Count 10.2 TH/MM3 Red Blood Count 4.04 MIL/MM3 Hemoglobin 11.6 GM/DL Hematocrit 36.0 % Mean Corpuscular Volume 89.2 FL Mean Corpuscular Hemoglobin 28.8 PG Mean Corpuscular Hemoglobin 32.3 % Concent Red Cell Distribution Width 13.1 % Platelet Count 235 TH/MM3 Mean Platelet Volume 6.7 FL Neutrophils (%) (Auto) 83.4 % Lymphocytes (%) (Auto) 7.5 % Monocytes (%) (Auto) 7.3 % Eosinophils (%) (Auto) 1.2 % Basophils (%) (Auto) 0.6 % Neutrophils # (Auto) 8.5 TH/MM3 Lymphocytes # (Auto) 0.8 TH/MM3 Monocytes # (Auto) 0.7 TH/MM3 Eosinophils # (Auto) 0.1 TH/MM3 Basophils # (Auto) 0.1 TH/MM3 CBC Comment DIFF FINAL Differential Comment Sodium Level 141 MEQ/L Potassium Level 4.6 MEQ/L Chloride Level 108 MEQ/L Carbon Dioxide Level 25.5 MEQ/L Anion Gap 8 MEQ/L Blood Urea Nitrogen 33 MG/DL Creatinine 1.10 MG/DL Estimat Glomerular Filtration 49 ML/MIN Rate Random Glucose 104 MG/DL Calcium Level 8.2 MG/DL MDM Medical Decision Making Medical Screen Exam Complete: Yes Emergency Medical Condition: Yes Medical Record Reviewed: Yes Differential Diagnosis Muscle tear, sciatica, COPD Narrative Course I have reviewed the patient's electronic medical record. Reviewed her admission history and physical as well as discharge summary from just a few days ago. She had extensive hospital workup including a stricture which is negative and a CTA of the chest negative for PE but did reveal some inflammatory changes in the lungs. IV placed I gave her injection of morphine and Zofran and Toradol I gave her series of 3 nebulizer treatments and a dose of IV steroid Patient saturations are 98% on 2 L CBC is normal Metabolic profile shows minimal azotemia Extended cardiac monitoring reveals sinus rhythm without ectopy She seems very anxious. I think her back pain is making her take fairly short minimal breaths resulting in this dramatic panting appearance that I see. Etiology of the back pain is unclear but is clearly musculoskeletal in nature. It's readily reproducible by palpating the musculature or rotating the scapula. Neither x-ray or CT of the chest revealed any cause. Patient feels improved on recheck. But she still has pain. I'm going to give her an injection of 1 mg IV Dilaudid. Planning discharge after that. She will require primary care follow-up and further investigation into this back pain. I'm going to prescribe her some Norflex to try, I've warned her about potential sedation. She does have oxycodone at home and Toradol at home Of note, patient says she has COPD and asthma. She has never smoked in her life however. Her breathing is much better on recheck. I think it was pain limited more than anything Diagnosis Primary Impression: Musculoskeletal back pain Additional Impression: Asthma attack Additional Instructions: The patient was advised to follow up with their physician and return if they worsen. The patient was warned about potential sedation for the medications they will receive on prescription. Med/Other Pt SpecificInfo: Prescription(s) given Scripts Orphenadrine ER 12 HR (Orphenadrine CR)100 Mg [id number] Mg PO Q12HR PRN (PAIN SCALE 1 TO 10) #20 TAB Ref 0 Prov:Dago May MD 11/28/16 Disposition: 01 DISCHARGE HOME Condition: Stable Dago May MD Nov 28, 2016 08:38
[2016-11-28] MEDS: RESP: ALBUTEROL 2.5 MG/3 ML NEB (SCH) INH (08:42)
[2016-11-28 08:46] VITALS: O2SAT 98
[2016-11-28 09:05] LABS: AUTOMATED NEUTROPHIL # 8.5 TH/MM3 (1.8-7.7); BASOPHIL # 0.1 TH/MM3 (0-0.2); BASOPHIL % 0.6 % (0.0-2.0); EOSINOPHIL # 0.1 TH/MM3 (0-0.4); EOSINOPHIL % 1.2 % (0.0-4.0); LYMPH % 7.5 % (9.0-44.0); LYMPHOCYTE # 0.8 TH/MM3 (1.0-4.8); MEAN CELL VOLUME 89.2 FL (80.0-100.0); MEAN CORPUSCULAR HEMOGLOBIN 28.8 PG (27.0-34.0); MEAN CORPUSCULAR HGB CONC 32.3 % (32.0-36.0); MONO % 7.3 % (0.0-8.0); NEUT % 83.4 % (16.0-70.0); PLATELET COUNT 235 TH/MM3 (150-450); RED BLOOD COUNT 4.04 MIL/MM3 (4.00-5.30); RED CELL DISTRIBUTION WIDTH 13.1 % (11.6-17.2); WHITE BLOOD COUNT 10.2 TH/MM3 (4.0-11.0)
[2016-11-28 09:06] LABS: HEMO FLAGS DIFF FINAL
--- NOTE | 2016-11-28 09:06 | RADHPO ---
EXAM DATE/TIME: 11/28/2016 08:54 [facility] COMPARISON: CHEST SINGLE AP, November 20, 2016, 20:59. INDICATIONS : Right side chest pain, short of breath. MEDICAL HISTORY : None. SURGICAL HISTORY : None. ENCOUNTER: Initial ACUITY: 3 weeks PAIN SCORE: 8/10 LOCATION: Right chest FINDINGS: A single view of the chest demonstrates the lungs to be symmetrically aerated without evidence of mas s, infiltrate or effusion. The cardiomediastinal contours are unremarkable. Osseous structures are intact. Degenerative changes and scoliosis of the thoracic spine are noted. CONCLUSION: No acute cardiopulmonary disease. Sebastien Macias MD on November 28, 2016 at 9:04 Board Certified Radiologist. This report was verified electronically.
[2016-11-28 09:13] LABS: POTASSIUM 4.6 MEQ/L (3.5-5.1)
[2016-11-28 09:16] LABS: BICARBONATE 25.5 MEQ/L (21.0-32.0)
[2016-11-28 09:44] VITALS: BP 170/74; PULSE 100; RESP 16; O2SAT 100
[2016-11-28] MEDS ORDERED: HYDROmorphone HCL PF 1 MG/ML VIAL IVS ONE (09:45)
[2016-11-28] MEDS ORDERED: ORPH100T99 PO (09:58)
[2016-11-28 10:47] VITALS: BP 162/87; PULSE 80; RESP 16; O2SAT 100
== END 2016-11-28 11:00 | disposition home or self-care (01) ==
LOC: PHED 08:06
DX: M54.9 Dorsalgia, unspecified (principal); J45.909 Unspecified asthma, uncomplicated; I50.9 Heart failure, unspecified; I10 Essential (primary) hypertension
CPT/HCPCS: 71010; 80048; 85025; 94640; 94664; 96372; 96374; 96375; 99285; J1170; J1885; J2270; J2405; J2930; J7613